=== PATIENT | male | born 1955 | race Caucasian/White ===

== ENCOUNTER 2016-12-06 13:21 | Day surgery (SDC) | payer OTHER ==
[~2016-12-06] VITALS: Ht 157.5 cm; Wt 78.1 kg
[2016-12-06 15:08] VITALS: Ht 157.5 cm; Wt 78.1 kg
[2016-12-06] MEDS ORDERED: ASPI81TA3 PO (15:22)
[2016-12-06] MEDS ORDERED: FINA5TAB4 PO (15:22)
[2016-12-06] MEDS ORDERED: AMLO-147 PO (15:22)
[2016-12-06] MEDS ORDERED: TAMS0.4C2 PO (15:22)
[2016-12-06] MEDS ORDERED: CRES10 PO (15:22)
[2016-12-06 15:37] VITALS: BP 145/78; PULSE 67; RESP 20
[2016-12-06] MEDS ORDERED: MIDAZOLAM 1 MG/ML 2 ML INJ ONE ×2 (16:36)
[2016-12-06] MEDS ORDERED: FENTAnyl 50 MCG/ML VIAL ONE (16:36)
[2016-12-06 16:43] VITALS: BP 123/75; PULSE 76; RESP 22
--- NOTE | 2016-12-07 09:18 | GILP ---
DATE OF PROCEDURE: 12/06/2016 PREOPERATIVE DIAGNOSIS: Gastroesophageal reflux. PROCEDURE DONE: Esophagogastroduodenoscopy and biopsy. POSTOPERATIVE DIAGNOSES: 1. Rule out Kincaid esophagitis at 37 to 38 cm level. 2. 3 cm hiatus hernia. DESCRIPTION OF PROCEDURE: The patient was put in left lateral decubitus after obtaining informed co nsent, was sedated with 3 mg IV Versed and 50 mcg of fentanyl. Advanced an Olympus video upper endo scope into the esophagus, stomach and duodenum. Esophagus showed distal esophagitis with what looks like Kincaid's like membrane. This was photographed and biopsy was done. 2 to 3 cm sliding hiatus hernia noted. Retroflexion also done in the fundus. Otherwise fundus, body and antrum normal. Pyl oric channel, duodenal bulb and postbulbar area and second part of the duodenum normal. Scope was w ithdrawn. Patient had no complication. Mild bleeding at the site of biopsy because he was on aspir in so no further biopsies were done. Scope was withdrawn. Patient had no complication. Plan will be to await for biopsy report, follow up as outpatient. Continue PPI as before. Dictated By: DONAVAN BLAIR Conf#: [id number] DID#: [id number]
--- NOTE | 2016-12-07 09:22 | GILP ---
DATE OF PROCEDURE: 12/06/2016 PROCEDURE DONE: Screening colonoscopy. POSTOPERATIVE DIAGNOSIS: Diverticulosis, mediocre prep. DESCRIPTION OF PROCEDURE: The patient was put in left lateral decubitus after obtaining informed co nsent, was sedated, monitored on oximetry, EKG, blood pressure. Further sedation done with 1 mg of IV Versed, 50 mcg of fentanyl, and a rectal exam done which was unremarkable. Advanced an Olympus v ideo colonoscope all the way to cecum. Diverticulosis throughout the colon noted and some areas had some solid stool that made it difficult to examine given upon washing and scope was withdrawn. Pat ient had no complication, 90% of the colon examined is unremarkable except for diverticulosis. Dear Dr. Tacho Mccracken, I would recommend BE next year, follow up in 2 to 3 weeks for biopsy report o n the esophagus I did and he will follow up as outpatient and may be repeat colonoscopy if necessary in 2 to 3 years. Dictated By: DONAVAN BLAIR Conf#: [id number] DID#: [id number] CC: Tacho Mccracken;*EndCC*
== END 2016-12-06 20:57 | disposition home or self-care (01) ==
LOC: GIL 13:21
PROVIDERS: ATTEND Internal Medicine
DX: Z12.11 Encounter for screening for malignant neoplasm of colon (principal); K22.70 Barrett's esophagus without dysplasia; K57.90 Diverticulosis of intestine, part unspecified, without perforation or abscess without bleeding; K44.9 Diaphragmatic hernia without obstruction or gangrene; E78.5 Hyperlipidemia, unspecified; I10 Essential (primary) hypertension
CPT/HCPCS: 43239; 45378; 88305; 88312; 88313; J2250; J3010